=== PATIENT | female | born 1955 | race Caucasian/White ===

== ENCOUNTER 2022-08-07 20:30 | Emergency (ER) | payer MEDICARE ==
[2022-08-07] MEDS ORDERED: Doxycycline 100 MG Tab PO ONE (20:31)
[2022-08-07] MEDS ORDERED: predniSONE 20 MG Tab PO ONE (20:31)
[2022-08-07 21:12] LABS: ESTIMATED GFR 71 mL/min (>60)
== END 2022-08-07 22:00 | disposition home or self-care (01) ==
LOC: FB.ED 20:30
DX: J40 Bronchitis, not specified as acute or chronic (principal); R04.2 Hemoptysis; F17.210 Nicotine dependence, cigarettes, uncomplicated
CPT/HCPCS: 36415; 71046; 80053; 85025; 99283; A9270; J7512

== ENCOUNTER 2023-04-20 11:52 | Emergency (ER) | payer MEDICARE ==
[2023-04-20] MEDS ORDERED: Albuterol/Ipratropium 3.0-0.5 MG/3 ML Neb Soln NEB ONE (13:17)
[2023-04-20] MEDS ORDERED: Ketorolac 30 MG/ML SDV IM ONE (13:18)
[2023-04-20] MEDS ORDERED: predniSONE 20 MG Tab PO ONE (13:18)
[2023-04-20] MEDS ORDERED: SUMAtriptan 6 MG/0.5 ML SDV SUBCUT ONE (13:18)
[2023-04-20 13:25] LABS: BASOPHILS ABSOLUTE AUTO 0.1 x10-3/uL (0.0-0.1); BASOPHILS PERCENT AUTO 1.1 % (0.2-1.5); EOSINOPHILS ABSOLUTE AUTO 0.2 x10-3/uL (0.0-0.8); EOSINOPHILS PERCENT AUTO 3.4 % (0.6-8.1); HEMATOCRIT 42.8 % (34.2-48.2); HEMOGLOBIN 14.4 g/dL (11.4-15.5); LYMPHOCYTES ABSOLUTE AUTO 1.9 x10-3/uL (1.0-4.4); LYMPHOCYTES PERCENT AUTO 25.9 % (18.4-52.1); MEAN CORPUSCULAR HEMOGLOBIN 31.5 pg (23.9-33.9); MEAN CORPUSCULAR HGB CONC 33.7 g/dL (31.9-34.8); MEAN CORPUSCULAR VOLUME 93.5 fL (76.7-100.5); MEAN PLATELET VOLUME 7.9 fL (7.1-12.4); MONOCYTES ABSOLUTE AUTO 0.4 x10-3/uL (0.3-1.0); MONOCYTES PERCENT AUTO 5.5 % (4.4-15.7); NEUTROPHILS ABSOLUTE AUTO 4.7 x10-3/uL (1.5-6.3); NEUTROPHILS PERCENT AUTO 64.1 % (30.8-76.2); PLATELET COUNT,PLT 245 x10(3)uL (151-488); RED BLOOD CELL COUNT 4.58 x10(6)uL (3.60-5.20); WHITE BLOOD CELL COUNT,WBC 7.4 x10-3/uL (3.0-10.3)
[2023-04-20 13:30] LABS: BLOOD UREA NITROGEN,BUN 16 mg/dL (7-18); CALCIUM 9.2 mg/dL (8.6-10.2); CARBON DIOXIDE,CO2 25 mmol/L (21-32); CHLORIDE,CL 105 mmol/L (100-110); EST CRCL DRUG DOSING (CG) 60.65 mL/min; ESTIMATED GFR 63 mL/min (>60); GLUCOSE RANDOM 88 mg/dL (80-116); POTASSIUM,K 4.1 mmol/L (3.5-5.3); SODIUM,NA 138 mmol/L (135-145)
[2023-04-20 13:35] LABS: A/G RATIO 0.9; ALANINE AMINOTRANSFERASE,ALT 19 U/L (12-36); ALBUMIN 3.2 g/dL (3.2-4.6); ALKALINE PHOSPHATASE 92 IU/L (56-112); ASPARTATE AMNIOTRANSFERASE,AST 16 IU/L (5-25); BILIRUBIN TOTAL 0.3 mg/dL (0.1-1.3); PROTEIN TOTAL,TP 6.7 g/dL (6.0-8.0)
[2023-04-20 13:42] LABS: TROPONIN I 11.1 pg/mL (4.0-60.3)
[2023-04-20 14:03] LABS: INFLUENZA A NAA NEGATIVE (NEGATIVE); INFLUENZA B NAA NEGATIVE (NEGATIVE)
[2023-04-20 14:05] LABS: CORONAVIRUS COVID-19 NAA NEGATIVE (NEGATIVE)
== END 2023-04-20 14:55 | disposition home or self-care (01) ==
LOC: FB.ED 11:52
DX: R09.1 Pleurisy (principal); G43.909 Migraine, unspecified, not intractable, without status migrainosus; J45.901 Unspecified asthma with (acute) exacerbation; I25.2 Old myocardial infarction; E78.00 Pure hypercholesterolemia, unspecified; E66.9 Obesity, unspecified; Z68.30 Body mass index [BMI] 30.0-30.9, adult; Z91.040 Latex allergy status; Z90.49 Acquired absence of other specified parts of digestive tract; Z88.0 Allergy status to penicillin; Z88.8 Allergy status to other drugs, medicaments and biological substances; Z79.899 Other long term (current) drug therapy
CPT/HCPCS: 0240U; 36415; 71045; 80053; 83880; 84484; 85025; 93005; 94640; 96372; 99285; J1885; J3030; J7512; J7620